=== PATIENT | male | born 1995 | race African-American/Black ===

== ENCOUNTER 2024-12-15 09:20 | Emergency (ER) | payer MEDICAID, OTHER ==
[~2024-12-15] VITALS: Ht 183.5 cm; Wt 81.8 kg
[2024-12-15] MEDS ORDERED: paracetamol PO (09:33)
[2024-12-15 09:34] VITALS: BP 125/83; PULSE 55; RESP 18; TEMP 98.6; O2SAT 100
[2024-12-15] MEDS ORDERED: TRAM50TA5 PO (10:39)
[2024-12-15] MEDS ORDERED: PENI500T2 PO (10:39)
== END 2024-12-15 10:43 | disposition home or self-care (01) ==
LOC: EMS 09:24 → EDSEX 09:24 → EMS 10:43
DX: K04.7 Periapical abscess without sinus (principal)
CPT/HCPCS: 99283; Z7502